=== PATIENT | female | born 1970 | race Hispanic/Latino ===

== ENCOUNTER 2017-07-08 17:30 | Emergency (ER) | payer OTHER ==
[2017-07-08 20:15] LABS: Basophils % (Auto) 0.2 % (0.0-1.8); Eosinophils # (Auto) 0.1 K/mm3 (0.0-0.4); Eosinophils % (Auto) 1.2 % (0.0-4.3); Hemoglobin 11.3 gm/dl (10.1-14.3); Lymphocytes # (Auto) 2.7 K/mm3 (1.2-5.4); Mean Corpuscular HGB Conc 32 % (30-34); Mean Corpuscular Hemoglobin 28 pg (28-32); Mean Corpuscular Volume 88 fl (79-97); Monocytes # (Auto) 0.4 K/mm3 (0.0-0.8); Monocytes % (Auto) 4.9 % (0.0-7.3); Platelet Count 233 K/mm3 (140-440); Red Blood Count 3.98 M/mm3 (3.65-5.03); Red Cell Distribution Width 13.5 % (13.2-15.2)
[2017-07-08 21:30] LABS: Bilirubin,Urine NEG (Negative); Blood,Urine MOD (Negative); Color,Urine Straw (Yellow); Nitrite,Urine NEG (Negative); Protein,Urine <15 mg/dL mg/dL (Negative); Urobilinogen,Urine < 2.0 mg/dL (<2.0); WBC,Urine < 1.0 /HPF (0.0-6.0)
--- NOTE | 2017-07-08 22:46 | Emergency Department Report ---
ED HPI - General Chief complaint: Urogenital-Female Stated complaint: 9 WKS SPOTTING PAIN Time Seen by Provider: 07/08/17 22:30 Source: patient Mode of arrival: Ambulatory Limitations: No Limitations - History of Present Illness Initial comments: Patient is a 46-year-old female presents to emergency room with vaginal spotting times one day. Patient states she has not weeks . Has not had any care yet. Patient is a G 11 . Patient states she believes she has a UTI, Due to her urinary urgency. She denies fever and chills. Patient denies abdominal pain but patient does have mild abdominal cramping.. Patient denies chest pain shortness of breath. MD Complaint: abdominal pain, vaginal bleeding -: Sudden Location: abdomen Radiation: suprapubic Severity: mild Severity scale (0 -10): 2 Quality: cramping Consistency: intermittent Improves with: rest Worsens with: movement Associated symptoms: vaginal bleeding, abdominal pain Vaginal bleeding: light :: Yes OB History - Current : no complications, other (A4) OB History - Previous Pregnancies: miscarriage Pre-kofi care: none - Related Data : 11 Para: 6 Ab: 4 Allergies Allergy/AdvReac Type Severity Reaction Status Date / Time amoxicillin Allergy Rash Verified 07/08/17 17:52 aspirin Allergy Shortness Verified 07/08/17 17:52 of Breath Penicillins Allergy Shortness Verified 07/08/17 17:52 of Breath ED Review of Systems ROS: Stated complaint: 9 WKS SPOTTING PAIN Other details as noted in HPI Comment: All other systems reviewed and negative Constitutional: denies: chills, fever Eyes: denies: eye pain, eye discharge, vision change ENT: denies: ear pain, throat pain Respiratory: denies: cough, shortness of breath, wheezing Cardiovascular: denies: chest pain, palpitations Endocrine: no symptoms reported Gastrointestinal: abdominal pain. denies: nausea, diarrhea Genitourinary: urgency. denies: dysuria, discharge Musculoskeletal: denies: back pain, joint swelling, arthralgia Skin: denies: rash, lesions Neurological: denies: headache, weakness, paresthesias Psychiatric: denies: anxiety, depression Hematological/Lymphatic: denies: easy bleeding, easy bruising ED Past Medical Hx - Past Medical History Previous Medical History?: Yes Hx Asthma: Yes - Surgical History Past Surgical History?: Yes Additional Surgical History: D and C 1996 - Family History Family history: no significant - Social History Smoking Status: Former Smoker Substance Use Type: Alcohol, Marijuana ED Physical Exam - General Limitations: No Limitations General appearance: alert, in no apparent distress - Head Head exam: Present: atraumatic, normocephalic - Eye Eye exam: Present: normal appearance - ENT ENT exam: Present: mucous membranes moist - Neck Neck exam: Present: normal inspection - Respiratory Respiratory exam: Present: normal lung sounds bilaterally. Absent: respiratory distress - Cardiovascular Cardiovascular Exam: Present: regular rate, normal rhythm. Absent: systolic murmur, diastolic murmur, rubs, gallop - GI/Abdominal GI/Abdominal exam: Present: soft, normal bowel sounds - Extremities Exam Extremities exam: Present: normal inspection - Back Exam Back exam: Present: normal inspection - Neurological Exam Neurological exam: Present: alert, oriented X3 - Psychiatric Psychiatric exam: Present: normal affect, normal mood - Skin Skin exam: Present: warm, dry, intact, normal color. Absent: rash ED Course Vital Signs 07/08/17 07/08/17 07/08/17 17:52 22:41 23:59 Temperature 98.0 F Pulse Rate 64 Respiratory 18 16 Rate Blood Pressure 115/61 138/76 O2 Sat by Pulse 98 100 100 Oximetry 07/09/17 00:18 Temperature Pulse Rate Respiratory Rate Blood Pressure 114/81 O2 Sat by Pulse 99 Oximetry ED Medical Decision Making - Lab Data Result diagrams: 07/08/17 19:47 - Radiology Data Normal viable IUP at 6 weeks consistent with gestational age. - Medical Decision Making Discussed case with Dr. goldsmith's research psychologist, Linda. She recommends outpatient treatment and close follow-up.. - Differential Diagnosis spotting. uti. Critical care attestation.: If time is entered above; I have spent that time in minutes in the direct care of this critically ill patient, excluding procedure time. ED Disposition Clinical Impression: Vaginal spotting, Abdominal cramping, Disposition: DC-01 TO HOME OR SELFCARE Is pt being admited?: No Does the pt Need Aspirin: No Condition: Stable Instructions: (ED) Additional Instructions: Patient to follow up with [employer] in 2-3 days. Patient to follow primary care in 3-5 days. Patient to start taking vitamins. Patient to return to ER if condition worsens. Patient increase water. Patient to take Tylenol when necessary for pain. Referrals: PRIMARY CARE, [Primary Care Provider] - 3-5 Days Forms: Accompanied Note, Work/School Release Form(ED) Time of Disposition: 02:24
[2017-07-09 01:07] VITALS: BP 114/81
--- NOTE | 2017-07-09 01:39 | Ultrasound Report ---
FINAL REPORT PROCEDURE: US OB < = 14 WEEKS FETUS TECHNIQUE: Real-time transabdominal sonography of the uterus, placenta, amniotic fluid, adnexa, and fetus was performed with image documentation. Measurements were obtained to determine age/size. M-mode Doppler was used to document heartbeat. CPT 48266 HISTORY: Vaginal bleeding durging pregnacy COMPARISON: No prior studies are available for comparison. FINDINGS: There is an intrauterine gestational sac measuring 13 millimeters corresponding to estimated gestational age is 6 weeks and 2 days. The yolk sac is enlarged at 5.8 millimeters. No pole or cardiac activity is identified. Abnormal nonviable not excluded. Follow-up recommended. Uterus measures 10.6 x 6 x 7.8 centimeters. Ovaries are not identified. There is no free fluid. IMPRESSION: Intrauterine gestational sac indicating possible at 6 weeks and 2 days. However, the yolk sac is enlarged and no pole or cardiac activity is identified. Nonviable cannot be excluded. Correlation with serial beta HCG measurements suggested.
== END 2017-07-09 02:53 | disposition home or self-care (01) ==
LOC: ED 17:30
DX: O26.851 Spotting complicating pregnancy, first trimester (principal); R10.9 Unspecified abdominal pain; Z3A.01 Less than 8 weeks gestation of pregnancy
CPT/HCPCS: 36415; 76801; 81001; 84702; 85025; 86850; 86900; 86901

== ENCOUNTER 2017-07-10 12:55 | Emergency (ER) | payer OTHER ==
[2017-07-10 13:04] VITALS: BP 113/67
--- NOTE | 2017-07-10 14:50 | Emergency Department Report ---
Blank Doc - Documentation Documentation: Patient is a 46-year-old female presenting with worsening vaginal bleeding. Patient started having some spotting yesterday had ultrasound performed as well as a beta Quant. Beta Quant was 14,000 and ultrasound shows a 6 week gestational sac with no pole present which indicates the patient most likely has miscarried however the patient states the bleeding has worsened and is now clots presents with crampy lower abdominal pain. Patient very concerned that she's had a miscarriage we'll repeat her ultrasound to see if the gestational sac is even present and if it is of his now collapsed down.
--- NOTE | 2017-07-10 15:06 | Emergency Department Report ---
ED Female HPI - General Chief complaint: Abdominal Pain Stated complaint: SPOTTING/ABDOMINAL PAIN/9 WKS Time Seen by Provider: 07/10/17 14:26 Source: patient Mode of arrival: Ambulatory Limitations: No Limitations - History of Present Illness Initial comments: Patient is a 46 year-old who presents to the ED complaining of lower pelvic cramping and vaginal bleeding. Patient states she was seen the day for the same problem. Patient states today she is here because of bleeding is worse. Patient states her last was her period was 04/07/2017. Patient states pain is very mild at this moment. She states she saw a little clot today but bleeding has stopped since then. She denies pelvic pain or cramping. Patient did mention she had a history of 4 miscarriages usually early . She is sitting in ED chair comfortably in no acute distress vital signs are normal. MD Complaint: vaginal bleeding, pelvic pain - Related Data Allergies Allergy/AdvReac Type Severity Reaction Status Date / Time amoxicillin Allergy Rash Verified 07/08/17 17:52 aspirin Allergy Shortness Verified 07/08/17 17:52 of Breath Penicillins Allergy Shortness Verified 07/08/17 17:52 of Breath ED Review of Systems ROS: Stated complaint: SPOTTING/ABDOMINAL PAIN/9 WKS Other details as noted in HPI Constitutional: denies: chills, fever Eyes: denies: eye pain, eye discharge, vision change ENT: denies: ear pain, throat pain Respiratory: denies: cough, shortness of breath, wheezing Cardiovascular: denies: chest pain, palpitations Endocrine: no symptoms reported Gastrointestinal: denies: abdominal pain, nausea, vomiting, diarrhea, constipation Genitourinary: denies: urgency, dysuria, frequency, hematuria, discharge Musculoskeletal: denies: back pain, joint swelling, arthralgia Skin: denies: rash, lesions Neurological: denies: headache, weakness, paresthesias Psychiatric: denies: anxiety, depression ED Past Medical Hx - Past Medical History Hx Asthma: Yes - Surgical History Past Surgical History?: No Additional Surgical History: D and C 1996 - Social History Smoking Status: Former Smoker Substance Use Type: None ED Physical Exam - General Limitations: No Limitations General appearance: alert, in no apparent distress - Head Head exam: Present: atraumatic, normocephalic - Eye Eye exam: Present: normal appearance - ENT ENT exam: Present: mucous membranes moist - Neck Neck exam: Present: normal inspection - Respiratory Respiratory exam: Present: normal lung sounds bilaterally. Absent: respiratory distress - Cardiovascular Cardiovascular Exam: Present: regular rate, normal rhythm. Absent: systolic murmur, diastolic murmur, rubs, gallop - GI/Abdominal GI/Abdominal exam: Present: soft, normal bowel sounds - Extremities Exam Extremities exam: Present: normal inspection - Back Exam Back exam: Present: normal inspection - Neurological Exam Neurological exam: Present: alert, oriented X3 - Psychiatric Psychiatric exam: Present: normal affect, normal mood - Skin Skin exam: Present: warm, dry, intact, normal color. Absent: rash ED Course Vital Signs 07/10/17 13:04 Temperature 98.6 F Pulse Rate 74 Respiratory 16 Rate Blood Pressure 113/67 [Right] O2 Sat by Pulse 100 Oximetry ED Medical Decision Making - Radiology Data Radiology results: report reviewed, image reviewed FINAL REPORT EXAM: US OB lt; = 14 WEEKS FETUS HISTORY: worsening vag bleeding TECHNIQUE: Transabdominal and transvaginal OB ultrasound. PRIORS: Early OB ultrasound July 08, 2017. FINDINGS: Single intrauterine dates 6.6 weeks by mean sac diameter. Mean sac diameter measures 20 mm. Uterus: 10.5 x 6.0 x 7.2 cm. Endometrial thickness measures 30.2 mm. Gestational sac and yolk sac identified. No pole noted. Sac appears lower in the endometrial canal compared to prior. Right ovary: 2.7 x 1.8 x 1.6 cm. Within normal limits. Left Ovary: 2.4 x 1.0 x 1.8 cm. Within normal limits. Adnexal: Unremarkable. No free fluid. IMPRESSION: Gestational sac and yolk sac. No pole. Findings may represent early or nonviable . Correlation with beta HCGs and follow-up ultrasound is recommended. Overall appearance is suspicious for nonviable . Transcribed By: TYM Dictated By: PENG CORDOVA MD Electronically Authenticated By: PENG CORDOVA MD Signed Date/Time: 07/10/17 1245 - Medical Decision Making 46-year-old female presents with threatened ED course: Ultrasound was completed today Ultrasound shows gestational sac of 6 weeks 6 days. Patient was seen yesterday and had a corner of >14,000. I discussed with the patient she would need a s repeat Quant tomorrow or the day after a repeat ultrasound in 1 week. I discussed the patient that I'll be giving her some [employer] referrals to call for appointment for follow-up. I discussed with patient that she may return here to the ED for her beta Quant level check this time I discussed the patient sometimes first trimester bleeding is normal and would need outpatient follow-up. I discussed with the patient she can take Tylenol as needed for pain if she has pain. I discussed with the patient to avoid any strenuous intercourse 80s since she follows up in [employer]. I did discussed with the patient that if symptoms worsen or bleeding worsens or she begins to have new onset of symptoms to return to ED immediately. Critical care attestation.: If time is entered above; I have spent that time in minutes in the direct care of this critically ill patient, excluding procedure time. ED Disposition Clinical Impression: Threatened in first trimester Disposition: DC-01 TO HOME OR SELFCARE Is pt being admited?: No Does the pt Need Aspirin: No Condition: Stable Instructions: Spontaneous Miscarriage (ED), Threatened Miscarriage (ED), Abdominal Pain (ED) Additional Instructions: Make sure to follow up with the [employer] as discussed. Only take Tylenol as needed for pain if you have any pain If you have any worsening symptoms or develop new symptoms please return to ED immediately. Referrals: PRIMARY CARE, [Primary Care Provider] - 3-5 Days MANJULA DUARTE MD [Referring] - 3-5 Days MAXX ROCHA MD [Referring] - 3-5 Days BENJAMÍN ROCHA MD [Staff Physician] - 3-5 Days JIMENEZ YATES MD [Staff Physician] - 3-5 Days LEIDY BHAGAT CNM [Advanced Practice Nurse] - 3-5 Days Forms: Work/School Release Form(ED) Time of Disposition: 17:37
--- NOTE | 2017-07-10 16:49 | Ultrasound Report ---
FINAL REPORT EXAM: US OB < = 14 WEEKS FETUS HISTORY: worsening vag bleeding TECHNIQUE: Transabdominal and transvaginal OB ultrasound. PRIORS: Early OB ultrasound July 08, 2017. FINDINGS: Single intrauterine dates 6.6 weeks by mean sac diameter. Mean sac diameter measures 20 mm. Uterus: 10.5 x 6.0 x 7.2 cm. Endometrial thickness measures 30.2 mm. Gestational sac and yolk sac identified. No pole noted. Sac appears lower in the endometrial canal compared to prior. Right ovary: 2.7 x 1.8 x 1.6 cm. Within normal limits. Left Ovary: 2.4 x 1.0 x 1.8 cm. Within normal limits. Adnexal: Unremarkable. No free fluid. IMPRESSION: Gestational sac and yolk sac. No pole. Findings may represent early or nonviable . Correlation with beta HCGs and follow-up ultrasound is recommended. Overall appearance is suspicious for nonviable .
== END 2017-07-10 17:44 | disposition home or self-care (01) ==
LOC: ED 12:55
DX: O20.0 Threatened abortion (principal); Z3A.09 9 weeks gestation of pregnancy; J45.909 Unspecified asthma, uncomplicated; Z87.891 Personal history of nicotine dependence; Z88.6 Allergy status to analgesic agent; Z88.0 Allergy status to penicillin
CPT/HCPCS: 76801; 76817